=== PATIENT | female | born 1965 | race Caucasian/White ===

== ENCOUNTER 2016-06-14 16:13 | Emergency (ER) | payer OTHER ==
--- NOTE | ~2016-06-14 | CR72 ---
[facility] A Service of [facility] & [facility] / [facility] RADIOLOGY TEXT RESULTS PATIENT: SUMMER GRAFF LOCATION: SED : 63 UNIT #: [id number] AGE: [address]: Babs Choudhury MD SEX: F ORDER DR: [id number] [place] [id number] E MR#: [id number] Acc #: [id number] NAME: SUMMER GRAFF : 1965 SEX: F STUDY DATE/TIME: 06/14/2016 16:28 UNIT: SED ROOM: STUDY DESCRIPTION: CR Chest Single View Portable Attending Physician: Babs Choudhury M.D. Ordering Physician: Babs Choudhury M.D. Primary Care Physician: Han Hernandez M.D. MEDICAL IMAGING REPORT This report is preliminary unless electronic signature is present. EXAM Portable chest. INDICATION 50-year-old female with dizziness, nausea, vomiting, and near-syncope. Symptoms beginning last night. COMPARISON 03/27/2016 FINDINGS Low-volume inspiration. No acute infiltrate. Heart size stable. IMPRESSION No active disease. Dictated by... Nick Higuera M.D. THIS IS AN ELECTRONICALLY VERIFIED REPORT Nick Higuera M.D. at 06/15/2016 4:34 PM JEREMIE/polina TD: 06/14/2016 16:55 JOB #: [id number] MEDICAL IMAGING REPORT Page 1 of 1
[2016-06-14 16:13] LABS: POC - CKMB 1.7 ng/mL (0.0-7.9); POC - MYOGLOBIN 58.3 ng/mL (0.0-169.0); POC - TROPONIN <0.05 ng/mL (<=0.05)
[~2016-06-14 16:13] MED LIST: ALLEGRA; ALLEGRA-D1 TAB.SR1; ALLEGRA-D1 TAB.SR1 PO; ATIVAN PO; BIRTH CONTROL; CIPRO PO; FLEXERIL10 MG PO; GLAUCOMA DROPS; IBUPROFEN800 MG PO; MEDROL DOSEPAK4 MG DOB; NAPROXEN PO; NEXIUM PO; ORUDIS75 M1 PO; PYRIDIUM100 MG PO; VICODIN 5/1 TAB 5/50 PO; [UNRECOGNIZED DRUG - OTHER]
[2016-06-14 16:14] LABS: BASOPHIL% 0.4 % (0-2.5); EOSINOPHIL# 0.3 X10e3 (0-0.7); EOSINOPHIL% 3.5 % (0.0-7.0); HEMATOCRIT 40.9 % (35.0-45.0); HEMOGLOBIN 13.7 gm/dL (12.0-16.0); LYMPHOCYTE# 2.1 X10e3 (1.0-3.5); LYMPHOCYTE% 24.6 % (17.0-45.0); MEAN CELL VOLUME 88.4 FL (83-96); MEAN CORPUSCULAR HEMOGLOBIN 29.5 PG (28-34); MEAN CORPUSCULAR HGB CONC 33.4 g/dL (30-36); MEAN PLATELET VOLUME 7.9 FL (6.5-11.5); MONOCYTE# 0.5 X10e3 (0-1.0); MONOCYTE% 6.3 % (3.0-12.0); NEUTROPHIL# 5.6 X10e3 (1.5-7.1); NEUTROPHIL% 65.2 % (40-75); PLATELET COUNT 221 X10e3 (140-420); RED BLOOD COUNT 4.62 X10e (3.90-5.30); RED CELL DISTRIBUTION WIDTH 13.6 % (11.0-15.5); WHITE BLOOD COUNT 8.6 X10e3 (4.0-10.5)
[2016-06-14 16:17] LABS: PROTHROMBIN TIME (PATIENT) 11.6 SECONDS (9.5-12.4)
[2016-06-14 16:20] LABS: DIFF IND NO
[2016-06-14 16:24] LABS: ALBUMIN SERUM 3.9 g/dL (3.5-5.0); BILIRUBIN, DIRECT 0.1 mg/dL (0.0-0.2); BILIRUBIN,INDIRECT 0.4 mg/dL (0.0-0.9); BILIRUBIN,TOTAL 0.5 mg/dL (0.2-2.0); BUN/CREATININE RATIO 37.14; CREATININE SERUM 0.7 mg/dL (0.6-1.4); GLOM FILT RATE Estimated 100.3 mL/min (>60); PARTIAL THROMBOPLASTIN TIME 29.1 SECONDS (25.6-38.1); POTASSIUM 3.8 mmol/L (3.5-5.1); PROTEIN TOTAL SERUM 6.8 g/dL (6.0-8.3)
== END 2016-06-14 16:53 ==
LOC: SED 16:13
PROVIDERS: Emergency Medicine
DX: I21.3 ST elevation (STEMI) myocardial infarction of unspecified site (principal); Z90.710 Acquired absence of both cervix and uterus; Z98.51 Tubal ligation status; Z98.890 Other specified postprocedural states
CPT/HCPCS: 36415; 71010; 80048; 80076; 82553; 82947; 83874; 83880; 84484; 85025; 85610; 85730; 96374; 96375; 99284; 99285; J1644